=== PATIENT | female | born 1960 | race Caucasian/White ===

== ENCOUNTER → 2024-07-10 | Day surgery (SDC) | payer MEDICARE, MEDICAID ==
[~2024-07-10] MED LIST: Iohexol 300 - 10 ML VIAL IV ONE; Lidocaine PF 2% (20 MG/ML) 2 ML VIAL IJ ONE
== END ==
LOC: MSO
DX: M54.16 Radiculopathy, lumbar region (principal); M47.896 Other spondylosis, lumbar region; M54.6 Pain in thoracic spine
CPT/HCPCS: J1100; Q9967